=== PATIENT | male | born 1990 | race Caucasian/White ===

== ENCOUNTER → 2018-12-16 | Outpatient (CLI) | payer OTHER | LOC: LABWHC1 11:32 | PROVIDERS: ATTEND Family Medicine | DX: G40.909 Epilepsy, unspecified, not intractable, without status epilepticus (principal); Z79.899 Other long term (current) drug therapy | CPT/HCPCS: 36415; 80185 ==

== ENCOUNTER → 2018-12-19 | Outpatient (CLI) | payer OTHER | END | disposition home or self-care (01) | LOC: LABWHC1 09:45 | PROVIDERS: ATTEND Family Medicine | DX: G40.909 Epilepsy, unspecified, not intractable, without status epilepticus (principal); Z79.899 Other long term (current) drug therapy | CPT/HCPCS: 36415; 80185 ==

== ENCOUNTER → 2021-09-02 | Outpatient (CLI) | payer OTHER ==
--- NOTE | 2021-09-04 16:34 | XR ---
EXAMINATION TYPE: XR lumbar spine with bend/flex, 7 views DATE OF EXAM: 09/02/2021 Comparison: None Clinical History: 30-year-old male M54.5 back pain Findings: Post surgical change of T11-L1 left lateral thoracolumbar fusion as well as interbody device. Interbo dy device is located posterior with this late anterior tilt of its superior aspect. The inferior port ion is just along the posterior vertebral body cortex. No vito retropulsion into the spinal canal. N o malalignment or dynamic subluxation is seen. Facet arthropathy lower lumbar spine. Remaining verteb ral body heights are preserved. Numerous small bilateral renal calculi. Surgical clips in the left mi d abdomen. Impression: 1. Status post T11-L1 left lateral thoracolumbar as well as interbody fusion. No vito retropulsion i nto the spinal canal. No malalignment or evident dynamic subluxation. 2. Numerous bilateral renal calculi.
== END ==
LOC: RADXRMAIN 13:55
PROVIDERS: ATTEND Family Medicine
DX: N20.0 Calculus of kidney (principal); M54.6 Pain in thoracic spine
CPT/HCPCS: 72114

== ENCOUNTER → 2025-02-16 | Outpatient (CLI) | payer OTHER ==
--- NOTE | 2025-02-16 10:55 | CT ---
EXAMINATION TYPE: CT lumbar spine wo con DATE OF EXAM: 02/16/2025 9:11 AM COMPARISON: None. CLINICAL INDICATION: Male, 34 years old with history of S22.081A STABLE BURST FX T11-T12; [facility], broke T11 & T12 in 2011, included implant in scan TECHNIQUE: CT of the lumbar spine without contrast. Coronal and sagittal reconstructions performed. CT DLP: 580.8 mGycm, Automated exposure control for dose reduction was used. FINDINGS: Imaging is extending up to the T10 level. There is redemonstrated T12 burst fracture. Residual retrop ulsion into the ventral spinal canal contributing to a focal mild to moderate spinal canal stenosis. Interval placement of an interbody device with lateral plate and screw fixation from T11 through L1. There appears to be satisfactory interbody ankylosis and fixed kyphotic deformity here. The inferior aspect of the interbody device is located at the far posterior margin of the L1 superior endplate and projects just beyond the posterior vertebral body cortex. No evident hardware loosening is seen. There is [id number] left neuroforaminal stenosis at T12/L1 and mild on the right at this level. Otherwise, vertebral body heights are preserved and alignment is maintained. IMPRESSION: 1. Posterior and interbody fusion across T11-L1 due to prior T12 burst fracture. 2. The burst fracture results in focal kyphosis at this level. Due to the kyphosis, the inferior sohail in of the interbody device ending at the L1 superior endplate is slightly posterior in position proje cting just beyond the vertebral body cortex within some of the chronically retropulsed osseous densit y. 3. Reyq-fg-sgvoblft focal spinal canal stenosis here at T12-L1. Caqp-ei-[id number] left neural foramina l stenosis here. [facility], Workstation: [employer], 02/16/2025 10:53 AM
== END | disposition home or self-care (01) ==
LOC: RADCTMAIN 07:39
PROVIDERS: ATTEND Neurological Surgery
DX: S22.081A Stable burst fracture of T11-T12 vertebra, initial encounter for closed fracture (principal); Z98.1 Arthrodesis status; M48.061 Spinal stenosis, lumbar region without neurogenic claudication
CPT/HCPCS: 72131

== ENCOUNTER → 2025-04-27 | Outpatient (CLI) | payer OTHER ==
--- NOTE | 2025-04-28 07:41 | MR ---
EXAMINATION TYPE: MR lumbar spine wo con DATE OF EXAM: 04/27/2025 10:31 PM COMPARISON: CT. CLINICAL INDICATION: Male, 34 years old with history of S22.081A; PH[facility], A Stable burst fracture T11-T1 2 vertebra, Low back pain into Right leg, RT side drop foot, Hx fall off roof 2011 TECHNIQUE: Multi planar, multi sequence imaging was performed utilizing: T1-weighted, T2-weighted, a nd turbo inversion recovery imaging of the lumbar spine. IV Contrast: mL (None, if empty) FINDINGS: Alignment: The lumbar vertebral bodies have preserved heights and alignment. Cord: The conus medullaris and the distal spinal cord appear unremarkable with regards to their signa l intensity and morphology. Bones/Discs: Fixation hardware at T11-T12 and L1 limits evaluation. Minimal degeneration changes thro ughout the spine with osteophyte formation and facet joint arthropathy. Intervertebral disc signal is maintained. No abnormal inversion recovery signal to suggest bony edema. Disc desiccation at L4-L5. T12-L1: No evidence of significant spinal canal stenosis or neural foraminal stenosis. L1-L2: No evidence of significant spinal canal stenosis or neural foraminal stenosis. L2-L3: No evidence of significant spinal canal stenosis or neural foraminal stenosis. L3-L4: No evidence of significant spinal canal stenosis or neural foraminal stenosis. L4-L5: No evidence of significant spinal canal stenosis or neural foraminal stenosis. L5-S1: The disc has a rounded posterior morphology without significant spinal canal stenosis. Facet j oint arthropathy with mild bilateral neural foraminal stenosis. No significant spinal canal or neural foraminal stenosis in the remainder of the visualized levels. Other findings: None. IMPRESSION: 1. No definitive evidence of disc herniation or significant spinal canal stenosis. 2. Minimal disc degeneration with associated osteoarthritic changes. 3. Post surgical changes or symptoms evaluation at thoracolumbar junction. [facility], , 04/28/2025 7:39 AM
== END | disposition home or self-care (01) ==
LOC: RADMRIMAIN 21:45
PROVIDERS: ATTEND Neurological Surgery
DX: S22.081A Stable burst fracture of T11-T12 vertebra, initial encounter for closed fracture (principal); M51.360 Other intervertebral disc degeneration, lumbar region with discogenic back pain only; W13.2XXA Fall from, out of or through roof, initial encounter; Z98.890 Other specified postprocedural states
CPT/HCPCS: 72148